=== PATIENT | female | born 1965 | race Hispanic/Latino ===

== ENCOUNTER → 2018-04-18 | Outpatient (CLI) | payer BC ==
[~2018-04-18] MED LIST: ATOR20TA65 PO; ESTROGEN PATCH TP; PREG75 PO
== END | disposition home or self-care (01) ==
LOC: RAH 09:17
PROVIDERS: ATTEND Physical Medicine & Rehabilitation
DX: M67.431 Ganglion, right wrist (principal)
CPT/HCPCS: 73221

== ENCOUNTER → 2018-09-11 | Outpatient (CLI) | payer BC | END | disposition home or self-care (01) | LOC: RAH 15:42 | PROVIDERS: ATTEND Physical Medicine & Rehabilitation | DX: M75.101 Unspecified rotator cuff tear or rupture of right shoulder, not specified as traumatic (principal); M25.711 Osteophyte, right shoulder; M25.411 Effusion, right shoulder | CPT/HCPCS: 73221 ==

== ENCOUNTER → 2019-09-16 | Outpatient (CLI) | payer OTHER ==
[~2019-09-16] MED LIST changes: +GABA-529 PO; +OMEP20CA12 PO; +TRAMADOL PO; +VICODIN PO
== END | disposition home or self-care (01) ==
LOC: RAH 15:52
PROVIDERS: ATTEND Physical Medicine & Rehabilitation
DX: M51.16 Intervertebral disc disorders with radiculopathy, lumbar region (principal)
CPT/HCPCS: 72148

== ENCOUNTER 2019-09-24 09:00 | Inpatient (IN) | payer OTHER ==
[~2019-09-24] VITALS: Ht 154.9 cm; Wt 72.6 kg
--- NOTE | 2019-09-30 13:53 | NUR ---
RE: abnormal labs INFORMED FREDA REGARDING LOW NA LEVEL. 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 NO NEW ORDERS.
[2019-10-01] VITALS (23 sets, daily range): BP systolic 91–114; BP diastolic 41–72; PULSE 17–129; RESP 13–20; TEMP 98–98.4
[2019-10-01] MEDS: CEFAZOLIN SODIUM 1 GM VIAL IVP SCH ×2 (05:00→07:30)
[2019-10-01] MEDS ORDERED: LACTATED RINGERS 1000ML 1,000 ML IV ONE (06:27)
[2019-10-01] MEDS ORDERED: DURAMORPH PF1 MG/ML 10ML AMP IV ONE (06:57)
[2019-10-01] MEDS ORDERED: THROMBIN-JMI 20000 UNIT KIT TP ONE (06:57)
[2019-10-01] MEDS ORDERED: BUPIVACAINE/EPI/PF 0.25% 30ML VIAL IJ ONE (06:57)
[2019-10-01] MEDS ORDERED: CEFAZOLIN SODIUM 1 GM VIAL ONE ×2 (06:58→11:06)
[2019-10-01] MEDS ORDERED: SUCCINYLCHOLINE CHLORIDE 20 MG/ML 10 ML VIAL ONE ×2 (07:03→09:20)
[2019-10-01] MEDS ORDERED: LIDOCAINE PF 2% 5ML ABBOJECT ONE (07:03)
[2019-10-01] MEDS ORDERED: MIDAZOLAM HCL 1 MG/ML 2ML VIAL ONE (07:04)
[2019-10-01] MEDS ORDERED: GLYCOPYRROLATE 1 MG/5 ML SYRINGE ONE (07:04)
[2019-10-01] MEDS ORDERED: DEXAMETHASONE SOD PHOSPHATE 10MG/ML 1ML VIAL ONE ×2 (07:04→07:12)
[2019-10-01] MEDS ORDERED: PROPOFOL 10 MG/ML 20ML VIAL IV ONE (07:04)
[2019-10-01] MEDS ORDERED: ROCURONIUM 10MG/1ML SYR 10 MG/ML ML ONE (07:05)
[2019-10-01] MEDS ORDERED: FENTANYL CITRATE PF 50 MCG/1 ML 2ML VIAL ONE ×4 (07:05→11:24)
[2019-10-01] MEDS ORDERED: ONDANSETRON HCL 4 MG/2 ML VIAL ONE (07:05)
[2019-10-01] MEDS ORDERED: NEOSTIGMINE 5MG/5ML SYR IV ONE (07:05)
[2019-10-01] MEDS ORDERED: EPHEDRINE SULFATE 50 MG/ML AMPULE ONE (08:01)
[2019-10-01] MEDS ORDERED: PHENYLEPHRINE HCL 10 MG/ML 1ML VIAL IV ONE (11:22)
[2019-10-01] MEDS: LACTATED RINGERS 1000ML 1,000 ML IV SCH (12:47)
[2019-10-01] MEDS ORDERED: SODIUM CHLORIDE 0.9% 10 ML VIAL IVP PRN (13:00)
[2019-10-01] MEDS: DEXAMETHASONE SOD PHOSPHATE 4 MG/ML 1ML VIAL IVP SCH ×3 (13:00→23:16)
[2019-10-01] MEDS ORDERED: PANTOPRAZOLE SODIUM 40 MG TABLET.DR PO PRN (13:00)
[2019-10-01] MEDS ORDERED: GABAPENTIN 100 MG CAPSULE PO PRN (13:00)
[2019-10-01] MEDS ORDERED: MORPHINE SULFATE 2 MG/ML 1ML SYG IVP PRN (13:00)
[2019-10-01] MEDS ORDERED: PROMETHAZINE HCL 25 MG/ML 1ML AMPULE IM PRN (13:00)
[2019-10-01] MEDS ORDERED: MORPHINE SULFATE 2 MG/ML 1ML SYG ONE (13:15)
[2019-10-01] MEDS ORDERED: ESMOLOL HCL 10 MG/ML 10 ML VIAL ONE (13:20)
[2019-10-01] MEDS ORDERED: CEFAZOLIN SODIUM 1 GM VIAL IVP SCH (20:00)
[2019-10-01] MEDS: HYDROCODONE/ACETAMINOPHEN 5/325 MG TAB PO PRN (20:39)
[2019-10-02] MEDS: LACTATED RINGERS 1000ML 1,000 ML IV SCH (00:12)
[2019-10-02 03:51] VITALS: BP 99/56; PULSE 72; RESP 18; TEMP 98
[2019-10-02] MEDS: HYDROCODONE/ACETAMINOPHEN 5/325 MG TAB PO PRN ×2 (03:56→09:54)
[2019-10-02] MEDS: DEXAMETHASONE SOD PHOSPHATE 4 MG/ML 1ML VIAL IVP SCH (03:57)
--- NOTE | 2019-10-02 06:10 | NUR ---
F/C F/C DISCONTINUED BY KARMEN CHÁVEZ R.N. TOLERATED WELL, DTV ,INSTRUCT PATIENT TO CALL NURSE WHEN URGE TO VOID, PATIENT VERBALIZES VIA TEACH BACK , CALL ALEX AT REACH
--- NOTE | 2019-10-02 06:26 | NUR ---
ACTIVITY AMBULATING IN HALLWAY STEADY GAIT, NO SOB NO C/O PAIN AT THIS TIME, TOLERATED WELL
[2019-10-02 07:30] VITALS: BP 123/79; PULSE 74; RESP 18; TEMP 97.9
--- NOTE | 2019-10-02 11:30 | NUR ---
PATIENT VOIDED ON OWN POST RODRIGUEZ CATH REMOVAL. DISCHARGE INSTRUCTION PROVIDED TO PATIENT .CARE INSTRUCTION SHEET AND APPT GIVEN TO PATIENT ALL QUESTIONS ANSWERED . PATIENT VERBALIZED UNDERSTANDING
--- NOTE | 2019-10-02 11:39 | NUR ---
DISCHARGE ORDERS PLACED.PATIENT PENDING TO VOID POST RODRIGUEZ CATH BEFORE DISCHARGE. LJ REMOVED WITH ASSISTANCE FROM CHARGE NURSE IGLESIA CALHOUN DRAIN REMOVED WITHOUT DIFFICULTY . TIP INTACT. INCISION MEASURE OF 15.6 . MID LINE 15 REAL INTACT . 3 REAL ON LJ AREA . STERILE DRESSING PLACED AND SECURED BY CHARGE NURSE. INSTRUCTION ON CARE PROVIDED ALONG WIT HSIGNS AND SYMPTOMS OF COMPLICATIONS TO GO TO NEAREST ER . ANY CONCERNS TO CALL MD .
--- NOTE | 2019-10-02 13:04 | NUR ---
DC PLAN PATIENT DISCHARGED ALREADY GONE. NO NEEDS VERBALIZED BY NURSING STAFF. Addendum: 10/02/19 at 1305 by GLORY AZUL RN CM Amended: Links added.
[2019-10-03] MEDS ORDERED: ESTRADIOL PATCH TD SCH (09:00)
== END 2019-10-02 12:30 | disposition home or self-care (01) | DRG 460 ==
LOC: EDSTATUS 09:00 → DAHIP 10-01 05:48 → 3DH 10-01 14:06
PROVIDERS: ADMIT Neurological Surgery; ATTEND Neurological Surgery
PROC: 0SG00AJ Fusion of Lumbar Vertebral Joint with Interbody Fusion Device, Posterior Approach, Anterior Column, Open Approach (ICD-10-PCS; principal; 2019-10-01 07:30)
PROC: 0SB20ZZ Excision of Lumbar Vertebral Disc, Open Approach (ICD-10-PCS; 2019-10-01 07:30)
PROC: 4A11X4G Monitoring of Peripheral Nervous Electrical Activity, Intraoperative, External Approach (ICD-10-PCS; 2019-10-01 07:30)
DX: M43.16 Spondylolisthesis, lumbar region (principal); M51.16 Intervertebral disc disorders with radiculopathy, lumbar region; F03.90 Unspecified dementia, unspecified severity, without behavioral disturbance, psychotic disturbance, mood disturbance, and anxiety; Z20.828 Contact with and (suspected) exposure to other viral communicable diseases; M48.02 Spinal stenosis, cervical region

== ENCOUNTER → 2019-10-29 | Outpatient (CLI) | payer OTHER ==
[~2019-10-29] MED LIST changes: -ATOR20TA65 PO; -PREG75 PO
== END | disposition home or self-care (01) ==
LOC: RAH 15:13
PROVIDERS: ATTEND Neurological Surgery
DX: M47.816 Spondylosis without myelopathy or radiculopathy, lumbar region (principal); M48.061 Spinal stenosis, lumbar region without neurogenic claudication; M25.78 Osteophyte, vertebrae; M43.26 Fusion of spine, lumbar region
CPT/HCPCS: 72100

== ENCOUNTER → 2021-03-17 | Outpatient (CLI) | payer OTHER | END | disposition home or self-care (01) | LOC: RAH 09:06 | PROVIDERS: ATTEND Family Medicine | DX: Z12.31 Encounter for screening mammogram for malignant neoplasm of breast (principal) | CPT/HCPCS: 77067 ==

== ENCOUNTER → 2025-01-13 | Outpatient (CLI) | payer OTHER | END | disposition home or self-care (01) | LOC: RAH 10:27 | PROVIDERS: ATTEND Internal Medicine | DX: Z12.31 Encounter for screening mammogram for malignant neoplasm of breast (principal); R07.89 Other chest pain | CPT/HCPCS: 77067 ==

== ENCOUNTER → 2025-02-19 | Outpatient (CLI) | payer OTHER ==
--- NOTE | 2025-02-21 06:36 | HMCIMG ---
BILATERAL BREAST ULTRASOUND: CLINICAL HISTORY: Follow-up for moderately heterogeneously dense breasts from mammogram from 02/19/2025 Finding: Real-time examination of the both breasts demonstrates homogeneous echotexture throughout both the breasts without evidence of focal solid mass. Both breasts has fibrocystic changes seen in the right breast at 5:00 there is a small cyst measuring 0.2 x 0.2 x 0.3 cm.. The right breast at 6:00 there is a small cyst measuring 0.4 x 0.3 x 0.4 cm. The right breast at 9:00 is a cluster of cyst measuring 0.3 x 0.2 x 0.3 cm. The right axilla has a benign-appearing lymph node measuring 2.2 x 0.8 x 1.8 cm. There is a second lymph node measuring 1.9 x 0.5 x 1.1 cm. The left breast has a cyst at 6:00 measuring 0.4 x 0.2 x 0.3 cm. There is of this cyst left breast at 6:00 measuring 0.4 x 0.3 x 0.4 cm. The left axilla has 2 benign-appearing lymph node measuring 1.4 x 0.8 x 0.8 cm. The other lymph node measuring 0.8 x 0.6 x 0.8 cm. IMPRESSION: Fibrocystic change of both breasts. I would recommend annual bilateral breast mammogram with bilateral breast sonogram. FINAL ASSESSMENT: ACR: BI-RAD- 2. Benign Finding.
== END | disposition home or self-care (01) ==
LOC: RAH 15:26
PROVIDERS: ATTEND Internal Medicine
DX: N60.02 Solitary cyst of left breast (principal); N60.01 Solitary cyst of right breast; R92.8 Other abnormal and inconclusive findings on diagnostic imaging of breast